=== PATIENT | male | born 1990 | race Two or more races ===

== ENCOUNTER 2019-08-28 10:30 | Emergency (ER) | payer OTHER ==
[~2019-08-28] VITALS: Ht 170.2 cm; Wt 91.0 kg
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
[2019-08-28 10:48] VITALS: BP 120/71
--- NOTE | 2019-08-28 10:49 | NUR ---
PT REPORT FROM NUNO MENDOZA. PT CARE TO BE ASSUMED.
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
== END 2019-08-28 11:58 | disposition home or self-care (01) ==
LOC: ED 11:52
DX: J70.5 Respiratory conditions due to smoke inhalation (principal)
CPT/HCPCS: 99281